=== PATIENT | female | born 1965 | race Caucasian/White ===

== ENCOUNTER 2022-05-16 09:48 | Emergency (ER) | payer BC, SELFPAY ==
[2022-05-16 09:53] VITALS: BP 142/76; PULSE 92; RESP 18; TEMP 37.7; O2SAT 96; BMI 25.2
[2022-05-16 10:12] LABS: Appearance Urine Turbid; Color Urine Yellow; Glucose Urine UA Negative (Negative); Leukocyte Esterase Urine Large (3+) (Negative); Nitrite Urine Negative (Negative); PH 6.5 (5.0-9.0); Urine Blood Small (1+) (Negative); Urine Ketones Negative (Negative); Urine Protein 100 (2+) mg/dL (Neg-Trace)
[2022-05-16 10:17] LABS: Bacteria Urine 2+ (None Seen); Hyaline Casts Urine 0-2 /LPF (0-2); Squamous Epithelial Cell Urine 0-2 /HPF (0-2); UACC Culture Trigger YES; WBC Urine >50 /HPF (0-5)
--- NOTE | 2022-05-16 10:24 | ED_ITS ---
HPI - Female Genitourinary General Chief complaint: Urogenital-Female Stated complaint: UTI Time Seen by Provider: 05/16/22 10:16 Source: patient Mode of arrival: ambulatory Limitations: no limitations History of Present Illness HPI Narrative: patient presents emergency department for evaluation of urinary frequency, urgency, dysuria, and fever 100.4 max. symptoms started 2 days ago. Denies any recent urinary tract infections. Denies shaking chills, nausea, vomiting, abdominal pain, back pain, blood in urine. Related Data Previous Rx's Medication Instructions Recorded cefuroxime axetil 250 mg tablet 250 mg PO Q12H 7 days #14 tabs 05/16/22 Allergies Allergy/AdvReac Type Severity Reaction Status Date / Time No Known Allergies Allergy Verified 05/16/22 10:30 Review of Systems Review of Systems: Constitutional: No chills, weakness or fatigue. positive fever Skin: No rash or itching. Cardiovascular: No chest pain, chest pressure or chest discomfort. No palpitati ons or pedal edema. Respiratory: No shortness of breath, cough or sputum production. Gastrointestinal: No anorexia, nausea, vomiting or diarrhea. No abdominal pain or blood in stool. Genitourinary: Positive burning micturition. positive urinary frequency and urgency. Musculoskeletal: No muscle pain, back pain, joint pain or stiffness. Psychiatric: No depression or anxiety. Yes all other systems are reviewed and are negative [facility] Past Medical History Attestation statement: The following information was validated with the patient. Source: old records reviewed Social History Social History Advance Directives: No Advance Directives Information Provided: No Physical Exam Vital Signs: Vital Signs: Last Vital Signs Temp 99.8 F 05/16/22 09:53 Pulse 92 05/16/22 09:53 Resp 18 05/16/22 09:53 BP 142/76 H 05/16/22 09:53 Pulse Ox 96 05/16/22 09:53 O2 Del Method 05/16/22 09:53 BMI result Body Mass Index 25.2 Appearance: Alert.?Oriented to person, place and time. No acute distress.?Normal affect. Eyes: Pupils equal, round and reactive to light.? ENT: Pharynx normal.?? Neck: Normal inspection.? Neck supple.?? CVS: Heart sounds normal. Normal heart rate and rhythm.? Pulses normal.?? Respiratory: No respiratory distress.? Lung sounds clear to auscultation bilaterally?? Abdomen: Soft and non-tender. Normoactive bowel sounds. no CVA tenderness?? Skin: Skin warm and dry.? Normal skin color.? Extremities: No lower extremity edema. Neuro: Moves all extremities spontaneously. Sensation intact bilaterally. no motor deficits Ambulates with normal steady gait. Course Course Course Narrative: patient is a 56-year-old female with no significant past medical history presents emergency department for evaluation of genitourinary symptoms. Urinalysis reveals large amount of leukocyte esterase negative nitrates greater than 50 WBC, consistent with urinary tract infection. Physical exam not consistent with pyelonephritis at this time. She is well-appearing. Tolerating intake. discussed plan of care for discharge home, course of antibiotics, worrisome signs and symptoms to return back to the emergency department for, outpatient follow-up with her primary care provider. Patient verbalized understanding, was discharged home in stable condition. [facility] - Female Genitourinary Medical Records Attestation: I reviewed the patient's medical records. Lab Data Attestation: I reviewed the patient's lab results. Labs: Lab Results 05/16/22 Range/Units 10:05 Urine Color Yellow Urine Appearance Turbid Urine pH 6.5 (5.0-9.0) Ur Specific [place] 1.010 (1.005-1.025) Urine Protein 100 (2+) H (Neg-Trace) mg/dL Urine Glucose (UA) Negative (Negative) mg/dL Urine Ketones Negative (Negative) mg/dL Urine Blood Small (1+) H (Negative) Urine Nitrite Negative (Negative) Ur Leukocyte Esterase Large (3+) H (Negative) Urine RBC 6-10 H (0-2) /HPF Urine WBC >50 H (0-5) /HPF Ur Squamous Epith Cells 0-2 (0-2) /HPF Urine Bacteria 2+ (None Seen) Hyaline Casts 0-2 (0-2) /LPF Discharge Plan Discharge Clinical Impression: Urinary tract infection Patient Disposition: Home, Self-Care Instructions: Urinary Tract Infection in Women (ED) Additional Instructions: You were found to have a urinary tract infection, you have been given an antibiotic to treat this, please complete this entire course. Consider consuming a yogurt daily, or using probiotic to prevent a yeast infection from occurring. Return to the emergency department with any new or worsening symptoms or concerns. Follow-up with your primary care provider as needed. Prescriptions: New cefuroxime axetil 250 mg tablet 250 mg PO Q12H 7 Days Qty: 14 0RF
== END 2022-05-16 11:13 | disposition home or self-care (01) ==
PROVIDERS: Emergency Provider Emergency Medicine
DX: N39.0 Urinary tract infection, site not specified (principal); B96.20 Unspecified Escherichia coli [E. coli] as the cause of diseases classified elsewhere; R50.9 Fever, unspecified
CPT/HCPCS: 81001; 87086; 87088; 87186; 99282; 99283

== ENCOUNTER 2022-08-24 18:02 | Emergency (ER) | payer BC, SELFPAY ==
[2022-08-24 19:01] VITALS: BP 173/97; PULSE 65; RESP 16; TEMP 36.8; O2SAT 97; BMI 25.7
--- NOTE | 2022-08-24 19:02 | ED.SKABFB ---
HPI - Skin/Abscess/Foreign Bdy General Chief complaint: Skin/Abscess/Foreign Body Stated complaint: Abscess on armpit Time Seen by Provider: 08/24/22 19:05 Source: patient Mode of arrival: ambulatory Limitations: no limitations History of Present Illness HPI narrative: 56-year-old female healthy here with swelling, redness the left armpit x1 week. No fevers or chills Related Data Previous Rx's Medication Instructions Recorded cefuroxime axetil 250 mg tablet 250 mg PO Q12H 7 days #14 tabs 05/16/22 doxycycline monohydrate 100 mg 100 mg PO BID #14 caps 08/24/22 capsule Allergies Allergy/AdvReac Type Severity Reaction Status Date / Time No Known Allergies Allergy Verified 05/16/22 10:30 Review of Systems Review of Systems: Yes all other systems are reviewed and are negative Constitutional: Constitutional: Reports no additional constitutional complaints, Denies body ache(s), Denies chills, Denies fever(s), Denies headache(s) and Denies weakness Eyes: Eyes: Reports no additional eye complaints and Denies change in vision ENT: Reports system reviewed and no additional complaints, except as documented, Denies dizziness, Denies headache(s), Denies nasal congestion, Denies nasal discharge and Denies neck pain Cardiovascular: Cardiovascular: Reports no additional cardiovascular complaints, Denies chest pain, Denies leg edema and Denies dyspnea Respiratory: Respiratory: Reports no additional respiratory complaints, Denies cough and Denies dyspnea Gastrointestinal: Gastrointestinal: Reports no additional gastrointestinal complaints, Denies abdominal pain, Denies diarrhea, Denies nausea and Denies vomiting Genitourinary: Genitourinary: Reports no additional female genitourinary complaints and Denies urinary incontinence Musculoskeletal: Musculoskeletal: Reports no additional musculoskeletal complaints, Denies back pain, Denies arthralgias, Denies joint swelling, Denies neck pain, Denies numbness and Denies tingling Integumentary/Breasts: Skin/Breast: Reports system reviewed and no additional complaints, except as docu, Reports furuncle, Reports swelling, Reports erythema and Denies rash Neurologic: Reports system reviewed and no additional complaints, except as documented, Denies Abnormal speech present, Denies dizziness, Denies headache(s), Denies numbness, Denies tingling and Denies weakness [facility] Past Medical History Attestation statement: The following information was validated with the patient. Source: old records reviewed and nursing notes reviewed Physical Exam Vital Signs: Vital Signs: Last Vital Signs Temp 98.3 F 08/24/22 19:01 Pulse 65 08/24/22 19:01 Resp 16 08/24/22 19:01 BP 173/97 H 08/24/22 19:01 Pulse Ox 97 08/24/22 19:01 O2 Del Method 08/24/22 19:01 BMI result Body Mass Index 25.7 Const: General: cooperative, healthy appearing, comfortable and no acute distress Orientation/consciousness: patient oriented x3 Limitations: no limitations HEENT: Head: Yes normal to inspection Ears: hearing grossly normal bilaterally General nose exam: Normal external nose present Face and sinus: Yes normal facial exam Mouth: Normal oral and palatal mucosa present Throat: Yes posterior oropharynx normal Eyes: General: appearance normal, both eyes and all related structures Pupils: Equal, round and reactive pupils present Neck: Neck: Yes normal visual inspection Chest: Chest palpation & inspection: normal inspection of the chest Chest/axillae images: 1. To the left axilla there is a medium-sized area of induration approximately the size of a quarter that has no fluctuance at all. There is some local tenderness and redness. No associated lymphadenopathy Resp: Effort & Inspection: normal respiratory effort Auscultation: clear to auscultation bilaterally Cardio: Rate: regular rate Rhythm: regular rhythm Peripheral pulses: Peripheral pulses 2+ throughout GI: Inspection: Yes normal to inspection Palpation (GI): Soft to palpation and nontender Auscultation: normal bowel sounds Back/Spine/Pelvis: Thoracic/Lumbar Spine: thoracic and lumbar spine normal to inspection Skin: General skin exam: no rashes or lesions noted Neuro: General: patient oriented x3, no focal motor deficits and normal sensation to monofilament Cranial nerves: Yes Equal, round and reactive pupils present Cognition (Neuro): normal cognition Speech: No Abnormal speech present Gait exam (Neuro): Normal gait present Motor exam (neuro): 5/5 motor strength present throughout Extrem: General: Yes normal to inspection Medical Decision Making Medical Decision Making MDM Narrative: 56-year-old female here with left axilla abscess. The area is quite indurated and firm and not fluctuant. I explained to the patient it would not likely be conducive to incision and drainage. Therefore I recommended warm compresses an oral antibiotics. Reviewed worrisome signs and symptoms of when to return to the emergency room. Comfortable plan for discharge home. Differential Diagnosis Differential Diagnoses: The differential diagnosis associated with the presentation includes Discharge Plan Discharge Clinical Impression: Abscess Patient Disposition: Home, Self-Care Instructions: Abscess (ED) Additional Instructions: Warm compresses four times daily Motrin or tylenol for pain Re-check blood pressure outpatient Prescriptions: New doxycycline monohydrate 100 mg capsule 100 mg PO BID Qty: 14 0RF No Action cefuroxime axetil 250 mg tablet 250 mg PO Q12H 7 Days Qty: 14 0RF Referrals: Physician,Unknown J [Primary Care Provider] -
== END 2022-08-24 19:49 | disposition home or self-care (01) ==
PROVIDERS: Emergency Provider Emergency Medicine
DX: L02.412 Cutaneous abscess of left axilla (principal)
CPT/HCPCS: 99282; 99283

== ENCOUNTER 2022-09-13 07:53 | Emergency (ER) | payer BC, SELFPAY ==
--- NOTE | ~2022-09-13 | CT_ITS ---
EXAMINATION: CT ABDOMEN AND PELVIS WITH CONTRAST CLINICAL INFORMATION: Right lower quadrant pain. Tender to touch. COMPARISON: None TECHNIQUE: Multidetector volumetric images were obtained from the superior aspect of the liver through the pubic symphysis following administration 85 mL of Omnipaque 350 intravenous contrast. Sagittal and coronal reformatted images were obtained on the technologist's workstation. Oral contrast: No This CT examination was performed using dose optimization techniques as appropriate, variously including the following: *Automated exposure control *Adjustment of mA and/or kV according to patient size (this includes techniques or standardized protocols for targeted exams where dose is matched to indication/reason for exam; i.e. extremities or head) *Use of iterative reconstruction technique DLP: 502 mGy-cm FINDINGS: LUNG BASES: There is platelike atelectasis in both lung bases. LIVER, GALLBLADDER, AND BILIARY TREE: The liver is normal in size, shape, and attenuation. There are multiple hypodense liver lesions. The largest measuring 7 mm in the left hepatic lobe image 18/3 The gallbladder is unremarkable with no evidence of radiopaque gallstones, gallbladder wall thickening, or obvious pericholecystic inflammatory changes. PANCREAS: Unremarkable. SPLEEN: Unremarkable. ADRENAL GLANDS: Unremarkable. KIDNEYS AND URETERS: The kidneys are normal in size, shape, and attenuation. No hydronephrosis, hydroureter, or calculi seen. No perinephric stranding. BLADDER: Unremarkable. GASTROINTESTINAL TRACT: There is moderate stool and gas seen throughout the colon without significant distention. The small bowel loops are normal caliber. Appendix is normal caliber. No inflammatory process seen in the abdomen. There is no free air or free fluid. ABDOMINAL WALL: No significant hernia is appreciated. LYMPH NODES: Normal. VASCULAR: Unremarkable. PELVIC VISCERA: The uterus is anteverted. There is a hypodense 1.3 cm lesion in the body of the uterus likely a small fibroid. No adnexal mass or free fluid. No abnormal pelvic or inguinal lymph nodes. There is no free fluid. OSSEOUS STRUCTURES: There are degenerative disc changes with vacuum disc phenomena and ventral spondylosis as well endplate sclerosis at the L2-L3 disc level. No aggressive lytic or sclerotic process seen. CT/CT abdomen pelvis w IV con IMPRESSION: 1. No acute intra-abdominal process seen. 2. Mild constipation. Normal appendix. 3. No radiopaque urolith or hydroureteronephrosis. 4. Hyperdense uterine fibroid. Fleischner guidelines were followed.
[2022-09-13 08:32] VITALS: BP 141/87; PULSE 72; RESP 18; TEMP 36.8; O2SAT 97; BMI 25.7
[2022-09-13 09:16] LABS: MANUAL DIFF FLAG NO
[2022-09-13 09:20] LABS: Basophils Percent Auto 0.4 % (0-2); Eosinophils Absolute Auto 0.1 X10*3/uL (0.0-0.4); Eosinophils Percent Auto 1.8 % (0-4); Hematocrit 40.7 % (37.0-47.0); Imm Gran Abs Auto 0.01 X10*3/uL (0.00-0.03); Imm Gran Pct Auto 0.4 % (0.0-0.4); Lymphocytes Absolute Auto 0.4 X10*3/uL (1.2-4.9); Mean Corpuscular HGB Conc 34.4 g/dl (31.0-35.0); Mean Corpuscular Hemoglobin 31.8 pg (27.0-33.0); Mean Corpuscular Volume 92.5 fL (80.0-98.0); Mean Platelet Volume 8.6 fL (9.4-12.3); Monocytes Absolute Auto 0.4 X10*3/uL (0.1-1.2); Monocytes Percent Auto 13.9 % (2-11); Neutrophils Absolute Auto 1.9 x10*3/uL (2.0-8.3); Neutrophils Percent Auto 68.5 % (45-73); Platelet Count 171 X10*3/uL (160-400); Red Cell Distribution Width 12.6 % (11.0-16.0); White Blood Count 2.7 X10*3/uL (4.8-10.8)
--- NOTE | 2022-09-13 09:24 | ED_ITS ---
HPI - Abdominal Pain General Chief Complaint: Abdominal Pain Stated Complaint: Appendicitis? Time Seen by Provider: 09/13/22 09:01 Source: patient Mode of arrival: ambulatory Limitations: no limitations History of Present Illness HPI narrative: Patient is a 56-year-old female who presents to the emergency department for evaluation of abdominal pain. She reports that she woke early this morning and felt sudden onset right lower quadrant abdominal pain when getting out of bed and associated nausea. Pain is described as sharp and aching. Denies any history of similar pain in the past. Yesterday she was feeling well. Denies fevers, chills, chest pain, shortness of breath, vomiting, constipation, diarrhea, dysuria, urinary frequency and pelvic pain, abnormal vaginal discharge. Denies any history of abdominal surgeries in the past. Related Data Previous Rx's Medication Instructions Recorded doxycycline monohydrate 100 mg 100 mg PO BID #14 caps 08/24/22 capsule Allergies Allergy/AdvReac Type Severity Reaction Status Date / Time No Known Allergies Allergy Verified 08/29/22 09:12 Review of Systems Review of Systems Constitutional : No Weight loss, No Fever, No Chills ENT/Mouth :? No sore throat, No Rhinorrhea Eyes: No Swelling, No Redness Cardiovascular : No Chest Pain, No SOB, No Edema Respiratory : No Cough, No Sputum, No Wheezing Gastrointestinal : Positive Nausea, no Vomiting, no Diarrhea, positive abdominal pain, No Hematochezia, No Melena Genitourinary : No Dysuria, No Urinary Frequency, No Hematuria, No Urgency? Musculoskeletal : No joint pain, No Myalgias, No Joint Swelling Skin : No Skin Lesions, No rash Neuro : No Weakness, No Numbness, No Dizziness, No Headache Psych : No Anxiety/Panic, No Depression Heme/Lymph: No Bruising, No Lymphadenopathy Endocrine : No Polyuria, No Polydipsia Yes all other systems are reviewed and are negative [facility] Past Medical History Attestation statement: The following information was validated with the patient. Source: old records reviewed Medical History (Updated 09/13/22 @ 11:59 by Alyssa Smith CNP) No pertinent past medical history Social History Social History Alcohol intake: current Alcohol intake frequency: 3 or more drinks per day Alcohol type: wine Smoked in Last 30 Days: No Use of substances other than those prescribed or required for medical reasons: No Advance Directives: No Advance Directives Information Provided: No Physical Exam ED Vital Signs: Vital Signs - 24 hr 09/13/22 08:32 09/13/22 10:11 Temperature 98.2 F Pulse Rate 72 69 Respiratory Rate 18 16 Blood Pressure 141/87 H 134/68 Pulse Oximetry 97 97 Oxygen Delivery Method Room Air Room Air BMI result Body Mass Index 25.7 Appearance: Alert.?Oriented to person, place and time. No acute distress.?Normal affect. Eyes: Pupils equal, round and reactive to light.? ENT: Pharynx normal.?? Neck: Normal inspection.? Neck supple.?? CVS: Heart sounds normal. Normal heart rate and rhythm.? Pulses normal.?? Respiratory: No respiratory distress.? Lung sounds clear to auscultation bilaterally?? Abdomen: Soft with right lower quadrant tenderness upon palpation. No rebound tenderness. No guarding. No rigidity. Normoactive bowel sounds. No pulsatile mass.?? Skin: Skin warm and dry.? Normal skin color.? Extremities: No lower extremity edema. Neuro: Moves all extremities spontaneously. Sensation intact bilaterally. CN II- XII intact. No focal neuro deficits. Ambulates with normal steady gait. Course Reevaluation(s) Reevaluation #1: Serum labs are overall unremarkable, no leukocytosis, no anemia, no CECILIO or electrolyte abnormalities. Pain currently 3/5, with improvement after receiving Toradol. CT of the abdomen and pelvis reveals no acute intra-abdominal process, there is presence of mild constipation. No evidence renal calculi or hydronephrosis. At this time pain appears most consistent with muscular strain, she is reporting that it is made worse with position change such as sitting upright or stretching. At this time do not feel is consistent with hernia, obstruction, mesenteric ischemia, ovarian torsion, appendicitis. Discussed plan of care for discharge home, use of acetaminophen/ibuprofen, outpatient follow-up with primary care provider for persistent symptoms. Patient stable for discharge, all questions answered. Time: 11:55 Medical Decision Making Medical Decision Making MDM Narrative: Patient is a 56-year-old female with no reported past medical history who presents emergency department for evaluation of sudden onset right lower quadrant abdominal pain. Overall she is well appearing, vital signs are stable. Afebrile without tachycardia. Abdominal exam concerning for right lower quadrant tenderness upon palpation, no CVA tenderness present, no guarding, no rigidity. Plan to obtain labs, urinalysis, patient received 1 L IV fluid, ketorolac IV for pain, declines anti nausea medication at this time. CT of the abdomen/pelvis. Disposition pending results. Differential Diagnosis Differential Diagnoses: The differential diagnosis associated with the presentation includes (Appendicitis, ovarian cyst, ovarian torsion, mesenteric i schemia, bowel obstruction, hernia, ectopic , musculoskeletal pain) Lab Data Result Diagrams: 09/13/22 08:56 09/13/22 08:56 Labs: Lab Results 09/13/22 09/13/22 09/13/22 Range/Units 08:56 08:56 08:56 WBC 2.7 L (4.8-10.8) X10*3/uL RBC 4.40 (4.20-5.50) X10*6/uL Hgb 14.0 (12.0-16.0) g/dl Hct 40.7 (37.0-47.0) % MCV 92.5 (80.0-98.0) fL MCH 31.8 (27.0-33.0) pg MCHC 34.4 (31.0-35.0) g/dl RDW 12.6 (11.0-16.0) % Plt Count 171 (160-400) X10*3/uL MPV 8.6 L (9.4-12.3) fL Immature Gran % (Auto) 0.4 (0.0-0.4) % Neut % (Auto) 68.5 (45-73) % Lymph % (Auto) 15.0 L (20-40) % [place] % (Auto) 13.9 H (2-11) % Eos % (Auto) 1.8 (0-4) % Baso % (Auto) 0.4 (0-2) % Lymph # (Auto) 0.4 L (1.2-4.9) X10*3/uL [place] # (Auto) 0.4 (0.1-1.2) X10*3/uL Eos # (Auto) 0.1 (0.0-0.4) X10*3/uL Baso # (Auto) 0.0 (0.0-0.2) X10*3/uL Abs Immat Gran (auto) 0.01 (0.00-0.03) X10*3/uL Absolute Neuts (auto) 1.9 L (2.0-8.3) x10*3/uL Absolute Nucleated RBC 0.000 (0.0-0.012) X10*3/uL Nucleated RBC % (auto) 0.0 (0.0-0.2) /100WBC ESR 13 (0-20) MM/HR Sodium 137 (135-145) mmol/L Potassium 4.7 (3.3-5.1) mmol/L Chloride 100 (96-108) mmol/L Carbon Dioxide 31 H (22-29) mmol/L Anion Gap 11 L (12-20) BUN 14 (9-16) mg/dL Creatinine 0.78 (0.5-1.4) mg/dL Estim Creat Clear Calc 76.2 Estimated GFR > 60 Random Glucose 101 (60-115) mg/dL Calcium 9.0 (8.4-10.2) mg/dL Total Bilirubin 1.0 (0.0-1.0) mg/dL Direct Bilirubin 0.3 (0.0-0.5) mg/dL AST 24 (5-31) U/L ALT 15 (0-31) U/L Alkaline Phosphatase 79 (39-117) U/L C-Reactive Protein 0.62 H (< or = 0.50) mg/dL Total Protein 7.2 (6.5-8.0) g/dL Albumin 4.4 (3.5-5.0) g/dL Lipase 23 (8-78) U/L Urine Color Urine Appearance Urine pH (5.0-9.0) Ur Specific [place] (1.005-1.025) Urine Protein (Neg-Trace) mg/dL Urine Glucose (UA) (Negative) mg/dL Urine Ketones (Negative) mg/dL Urine Blood (Negative) Urine Nitrite (Negative) Ur Leukocyte Esterase (Negative) Urine RBC (0-2) /HPF Urine WBC (0-5) /HPF Ur Squamous Epith Cells (0-2) /HPF Urine Bacteria (None Seen) Hyaline Casts (0-2) /LPF 09/13/22 09/13/22 Range/Units 10:03 10:03 WBC (4.8-10.8) X10*3/uL RBC (4.20-5.50) X10*6/uL Hgb (12.0-16.0) g/dl Hct (37.0-47.0) % MCV (80.0-98.0) fL MCH (27.0-33.0) pg MCHC (31.0-35.0) g/dl RDW (11.0-16.0) % Plt Count (160-400) X10*3/uL MPV (9.4-12.3) fL Immature Gran % (Auto) (0.0-0.4) % Neut % (Auto) (45-73) % Lymph % (Auto) (20-40) % [place] % (Auto) (2-11) % Eos % (Auto) (0-4) % Baso % (Auto) (0-2) % Lymph # (Auto) (1.2-4.9) X10*3/uL [place] # (Auto) (0.1-1.2) X10*3/uL Eos # (Auto) (0.0-0.4) X10*3/uL Baso # (Auto) (0.0-0.2) X10*3/uL Abs Immat Gran (auto) (0.00-0.03) X10*3/uL Absolute Neuts (auto) (2.0-8.3) x10*3/uL Absolute Nucleated RBC (0.0-0.012) X10*3/uL Nucleated RBC % (auto) (0.0-0.2) /100WBC ESR (0-20) MM/HR Sodium (135-145) mmol/L Potassium (3.3-5.1) mmol/L Chloride (96-108) mmol/L Carbon Dioxide (22-29) mmol/L Anion Gap (12-20) BUN (9-16) mg/dL Creatinine (0.5-1.4) mg/dL Estim Creat Clear Calc Estimated GFR Random Glucose (60-115) mg/dL Calcium (8.4-10.2) mg/dL Total Bilirubin (0.0-1.0) mg/dL Direct Bilirubin (0.0-0.5) mg/dL AST (5-31) U/L ALT (0-31) U/L Alkaline Phosphatase (39-117) U/L C-Reactive Protein 0.73 H (< or = 0.50) mg/dL Total Protein (6.5-8.0) g/dL Albumin (3.5-5.0) g/dL Lipase (8-78) U/L Urine Color Yellow Urine Appearance Clear Urine pH 7.0 (5.0-9.0) Ur Specific [place] >= 1.030 H (1.005-1.025) Urine Protein Negative (Neg-Trace) mg/dL Urine Glucose (UA) Negative (Negative) mg/dL Urine Ketones Trace (Negative) mg/dL Urine Blood Trace H (Negative) Urine Nitrite Negative (Negative) Ur Leukocyte Esterase Negative (Negative) Urine RBC 3-5 H (0-2) /HPF Urine WBC 0-5 (0-5) /HPF Ur Squamous Epith Cells 0-2 (0-2) /HPF Urine Bacteria None Seen (None Seen) Hyaline Casts 0-2 (0-2) /LPF Radiology Impression Discussion of test interpretation with radiology: I have reviewed the radiologist's reading. Radiologist Impression: CT/CT abdomen pelvis w IV con IMPRESSION: 1.? No acute intra-abdominal process seen. 2.? Mild constipation. Normal appendix. 3. No radiopaque urolith or hydroureteronephrosis. 4. Hyperdense uterine fibroid. Medications Administered Discontinued Medications Generic Name Dose Route Start Last Admin Trade Name Freq PRN Reason Stop Dose Admin Sodium Chloride 1,000 mls @ 999 mls/hr 09/13/22 09:30 09/13/22 11:30 Ns IV 09/13/22 10:30 Infused .Q1H1M SHABNAM Infusion Iohexol 100 ml 09/13/22 10:03 09/13/22 10:03 Iohexol 350 Mg/Ml 100 Ml Infus..Btl IV 09/13/22 10:04 85 ml ONCE ONE Administration Ketorolac Tromethamine 15 mg 09/13/22 09:29 09/13/22 10:31 Ketorolac Tromethamine 15 Mg/Ml Vial IVPUSH 09/13/22 09:30 15 mg ONCE ONE Administration Discharge Plan Discharge Clinical Impression: Abdominal pain Patient Disposition: Home, Self-Care Instructions: Abdominal Pain (ED) Additional Instructions: As we discussed, your blood work today was overall normal, the CT of your abdomen does not reveal any identifiable cause for your pain. At this time your pain appears most consistent with a musculoskeletal nature. Please be sure to rest, apply ice/heat to the area as tolerated throughout the day. You can take ibuprofen 200 mg, 3 tablets (600mg) every 6-8 hours as needed for pain, in addition to Tylenol 500 mg, 2 tablets (1,000mg) every 4-6 hours as needed for pain, but not to exceed 3 doses daily (3,000mg).? Please contact your primary care provider and arrange for a follow-up visit within the next 2-3 days Return back to emergency department any new or worsening symptoms or concerns. Prescriptions: No Action doxycycline monohydrate 100 mg capsule 100 mg PO BID Qty: 14 0RF Referrals: Stormy Pimentel CNP [Primary Care Provider] - Stand Alone Forms: Work/School Release
[2022-09-13 09:35] LABS: Alanine Aminotransferase 15 U/L (0-31); Albumin Level 4.4 g/dL (3.5-5.0); Alkaline Phosphatase 79 U/L (39-117); Anion Gap 11 (12-20); Aspartate Amino Transferase 24 U/L (5-31); Bilirubin Direct 0.3 mg/dL (0.0-0.5); Blood Urea Nitrogen 14 mg/dL (9-16); Carbon Dioxide 31 mmol/L (22-29); Chloride 100 mmol/L (96-108); Creatinine Clr Calc Pharmacy 76.2; Estimated Glomerular Filt Rate > 60; Glucose Random 101 mg/dL (60-115); Lipase 23 U/L (8-78); Potassium 4.7 mmol/L (3.3-5.1); Sodium 137 mmol/L (135-145); Total Protein 7.2 g/dL (6.5-8.0)
[2022-09-13] MEDS: iohexoL 350 MG/ML 100 ML INFUS..BTL IV (10:03)
[2022-09-13 10:11] VITALS: BP 134/68; PULSE 69; RESP 16; O2SAT 97
[2022-09-13 10:12] LABS: Appearance Urine Clear; Color Urine Yellow; Glucose Urine UA Negative (Negative); Leukocyte Esterase Urine Negative (Negative); Nitrite Urine Negative (Negative); Specific Gravity - Urine >= 1.030 (1.005-1.025); UMIC TRIGGER UACC YES; Urine Blood Trace (Negative); Urine Ketones Trace mg/dL (Negative); Urine Protein Negative (Neg-Trace)
[2022-09-13 10:21] LABS: Bacteria Urine None Seen (None Seen); Hyaline Casts Urine 0-2 /LPF (0-2); Squamous Epithelial Cell Urine 0-2 /HPF (0-2); WBC Urine 0-5 /HPF (0-5)
[2022-09-13 10:27] LABS: C Reactive Protein 0.62 mg/dL (< or = 0.50)
[2022-09-13 10:28] LABS: C Reactive Protein 0.73 mg/dL (< or = 0.50)
[2022-09-13] MEDS: 0.9 % Sodium Chloride 1,000 ML 999 ML IV (10:29)
[2022-09-13] MEDS: Ketorolac Tromethamine 15 MG/ML VIAL IVPUSH (10:31)
--- NOTE | 2022-09-13 10:33 | PC.NURSE ---
patient a&ox3, iv inserted, labs drawn, pt medicated per order, pt had ct performed-awaiting results, pt c/o rt abd pain, states her pain increases with ambulation, call islas within reach, will continue to monitor
[2022-09-13 11:03] LABS: Erythrocyte Sedimentation Rate 13 MM/HR (0-20)
--- NOTE | 2022-09-13 11:44 | PC.NURSE ---
patient a&ox3, pt states her pain has increased to 8/10, will notify provider
[2022-09-13 12:15] VITALS: BP 137/85; PULSE 67; RESP 16; O2SAT 96
== END 2022-09-13 12:18 | disposition home or self-care (01) ==
PROVIDERS: Nurse Practitioner Family; Emergency Provider Emergency Medicine; PCP Nurse Practitioner Family
DX: R10.31 Right lower quadrant pain (principal)
CPT/HCPCS: 36415; 74177; 80048; 80076; 81001; 83690; 85025; 85652; 86140; 96361; 96374; 99284; J1885; Q9967